=== PATIENT | male | born 1995 | race Caucasian/White ===

== ENCOUNTER 2020-06-08 08:16 | Day surgery (SDC) | payer OTHER ==
[~2020-06-08] VITALS: Ht 175.3 cm; Wt 72.0 kg
[2020-06-08] MEDS ORDERED: PRILOSEC 20MG20 MG PO (08:36)
[2020-06-08 08:59] VITALS: BP 127/99; PULSE 57; TEMP 97.1
[2020-06-08 10:04] VITALS: BP 131/91; PULSE 65; TEMP 97.3
--- NOTE | 2020-06-08 10:04 | NUR ---
PT TO BAY 3 FROM PROCEDURE ROOM ON CART. PT WALKS TO CHAIR FROM CART WITH ASSISTANCE. PT DENIES C/O. VITAL SIGNS STABLE. CALL LIGHT NEXT TO PT.
[2020-06-08 10:24] VITALS: BP 138/87; PULSE 67
--- NOTE | 2020-06-08 10:24 | NUR ---
PT CONTINUES TO DENY C/O. VITAL SIGNS STABLE. CALL LIGHT NEXT TO PT. DR. BALLARD IN ROOM TALKING TO PT.
[2020-06-08 10:39] VITALS: BP 127/99; PULSE 64
--- NOTE | 2020-06-08 11:02 | NUR ---
PT CONTINUES TO DENY C/O. VITAL SIGNS STABLE. DISCHARGE INSTRUCTIONS REVIEWED WITH PT. PT VERBALIZES UNDERSTANDING. PT TO PT CAR PER WHEELCHAIR BY NURSE.
== END 2020-06-08 10:51 | disposition home or self-care (01) ==
LOC: SDCO 08:16
DX: K29.50 Unspecified chronic gastritis without bleeding (principal); K29.80 Duodenitis without bleeding; R19.7 Diarrhea, unspecified; K63.89 Other specified diseases of intestine; Z90.49 Acquired absence of other specified parts of digestive tract; F17.210 Nicotine dependence, cigarettes, uncomplicated
CPT/HCPCS: J2250; J3010